=== PATIENT | female | born 1950 | race Caucasian/White ===

== ENCOUNTER 2020-12-16 08:03 | Day surgery (SDC) | payer MEDICARE, BC ==
[2020-12-16] MEDS ORDERED: diphenhydrAMINE 50 MG/ML SDV IVPUSH ONE (08:04)
[2020-12-16] MEDS ORDERED: Dexamethasone 4 MG/ML 5 ML MDV IVPUSH ONE (08:04)
[2020-12-16] MEDS ORDERED: Glycopyrrolate 0.2 MG/ML 5 ML MDV IV ONE (08:04)
[2020-12-16] MEDS ORDERED: HYDROmorphone 2 MG/ML SDV IV ONE (08:04)
[2020-12-16] MEDS ORDERED: Neostigmine Methylsulfate 10 MG/10 ML MDV IVPUSH ONE (08:04)
[2020-12-16] MEDS ORDERED: Ondansetron 4 MG/2 ML SDV IVPUSH ONE ×2 (08:04→13:51)
[2020-12-16] MEDS ORDERED: fentaNYL 100 MCG/2 ML SDV IV ONE (08:04)
[2020-12-16] MEDS ORDERED: Midazolam 1 MG/ML 2 ML SDV IV ONE (08:04)
[2020-12-16] MEDS ORDERED: Rocuronium 50 MG/5 ML Vial IV ONE (08:04)
[2020-12-16] MEDS ORDERED: Propofol 200 MG/20 ML SDV IV ONE (08:04)
[2020-12-16] MEDS ORDERED: Ketorolac 30 MG/ML SDV IVPUSH ONE (08:04)
[2020-12-16] MEDS ORDERED: Lactated Ringers 1,000 ML IV ONE (08:04)
[2020-12-16] MEDS ORDERED: Succinylcholine 200 MG/10 ML MDV IV ONE (08:04)
[2020-12-16] MEDS ORDERED: Lactated Ringers 1,000 ML IV SCH (08:15)
[2020-12-16] MEDS ORDERED: Sodium Chloride 0.9% 10 ML Syringe FLUSH PRN (08:15)
--- NOTE | 2020-12-16 09:57 | PCM.PN ---
- General Info Date of Service: 12/16/20 - Review of Systems Systems Review Comment:: 70 y/o female with symptomatic cholelithiasis here for cholecystectomy. She is medically stable to proceed. I have again reviewed the proposed procedure with the patient. Instructions and expectations reviewed and she agrees to proceed accepting risks. Her recent H and P is reviewed and no significant changes are noted. - Patient Data Weight - Most Recent: 277 lb 3.7 oz Med Orders - Current: Current Medications Lactated Ringer's (Ringers, Lactated) 1,000 mls @ 125 mls/hr IV ASDIRECTED KIRTI Last Admin: 12/16/20 09:05 Dose: 125 mls/hr Documented by: Sodium Chloride (Sodium Chloride 0.9% 10 Ml Syringe) 10 ml FLUSH ASDIRECTED PRN PRN Reason: Keep Vein Open Discontinued Medications Cefazolin Sodium 3 gm/ Sodium (Chloride) 100 mls @ 200 mls/hr IV ONETIME ONE Stop: 12/16/20 08:44 Last Admin: 12/16/20 09:14 Dose: 200 mls/hr Documented by: - Problem List Review Problem List Initiated/Reviewed/Updated: Yes - My Orders Last 24 Hours: My Active Orders 12/15/20 Dinner Nothing Per Oral Diet [DIET] 12/16/20 08:15 Patient Status [ADT] Routine Patient to Empty Bladder [RC] ASDIRECTED RT Incentive Spirometry [RC] ASDIRECTED Lactated Ringers [Ringers, Lactated] 1,000 ml IV ASDIRECTED Sodium Chloride 0.9% [Saline Flush] 10 ml FLUSH ASDIRECTED PRN Peripheral IV Insertion Adult [OM.PC] Routine Sequential Compression Device [OM.PC] Routine 12/16/20 09:30 Verify Patient Consent Obtain [RC] ASDIRECTED - Assessment Assessment:: Symptomatic Cholelithiasis - Plan Plan:: Cholecystectomy
[2020-12-16] MEDS ORDERED: Bupivacaine 0.5% 30 ML SDV INJECT ONE (10:30)
--- NOTE | 2020-12-16 11:46 | PCM.OPNOTE ---
- General Post-Op/Procedure Note Date of Surgery/Procedure: 12/16/20 Operative Procedure(s): Laparoscopic Cholecystectomy Findings: Enlarged gallbladder with stones Pre Op Diagnosis: Symptomatic Cholelithiasis Post-Op Diagnosis: Same Anesthesia Technique: General ET Tube Primary Surgeon: Jaswant Dawn Pathology: Gallbladder with stones Output, Urine Amount: 0 EBL in mLs: 20 Complications: None Condition: Good
[2020-12-16] MEDS ORDERED: Scopolamine 1.5 MG Transdermal Patch TOP ONE (12:48)
[2020-12-16] MEDS ORDERED: hydrOXYzine HCl 50 MG/ML SDV IM ONE (13:07)
--- NOTE | 2020-12-16 13:54 | OR ---
DATE OF OPERATION: 12/16/2020 SURGEON: Jaswant Dawn MD PREOPERATIVE DIAGNOSIS: Symptomatic cholelithiasis. POSTOPERATIVE DIAGNOSIS: Symptomatic cholelithiasis. OPERATION PERFORMED: Laparoscopic cholecystectomy. INDICATIONS FOR SURGERY: This 70-year-old female has been having symptoms of postprandial right upper quadrant and right-sided back pain. She has been found to have cholelithiasis and she comes for cholecystectomy. FINDINGS: The patient's gallbladder is enlarged, distended, and somewhat tense. It does contain multiple stones. The adjacent liver and organs, otherwise, appear unremarkable as viewed laparoscopically. PROCEDURE IN DETAIL: The patient was taken to the operating room. She was given general endotracheal anesthesia. The abdomen was sterilely prepped and draped. An infraumbilical stab wound incision was made. Through this, a Veress needle was inserted and pneumoperitoneum via this needle to a pressure of 15 mmHg was achieved with carbon dioxide. The Veress needle was then replaced with a 12-mm trocar into which the 5-mm variable-angled laparoscopic camera was inserted. Under direct visualization, 5-mm trocars were placed in the subxiphoid midline and in 2 areas of the right abdomen. All trocar sites were infiltrated with Marcaine prior to incision. Intraabdominal and pelvic inspection was carried out and then attention was turned to the gallbladder. There were some fatty adhesions to the undersurface of the right side of the liver. These were carefully taken down with cautery dissection to facilitate exposure of the gallbladder. The gallbladder was then secured with grasping forceps placed through the lateral trocars and retracted superiorly and anteriorly. The fatty tissue overlying the lower portion of the gallbladder was cleared and the cystic duct was identified. The cystic duct was isolated and dissection proceeded into the triangle of Calot clearing this and isolating the cystic artery. Once the cystic artery had been clearly identified, it was doubly clipped and divided. The cystic duct was then clearly identified with the triangle of Calot completely cleared. The cystic duct was milked and it too was doubly clipped and divided near the gallbladder with great care being used to avoid any injury or compromise to the common bile duct. The gallbladder was then dissected free from the undersurface of the liver using the cautery device. Once the gallbladder had been completely freed, it was extracted through the umbilical trocar site. This did require opening the gallbladder extra- abdominally and extracting the stones, but then the gallbladder was able to be removed. Reinspection of the gallbladder bed was performed. Good hemostasis was assured in all areas with cautery and then the pneumoperitoneum was evacuated, and the trocars were removed under direct visualization. The fascia of the umbilical trocar site was closed with a [id number] 0 Vicryl suture. Wounds were irrigated with Betadine and saline solution. Skin incisions approximated with interrupted 4-0 Vicryl in a subcuticular stitch. Antibiotic ointment and sterile dressings were placed. The patient was awakened, extubated, and taken from the operating room in satisfactory condition. ESTIMATED BLOOD LOSS: 20 mL. COMPLICATIONS: None. PROGNOSIS: Good. /[id number] SHERICE/JUNAID
== END 2020-12-16 14:53 | disposition home or self-care (01) ==
LOC: FB.SDS 08:03
PROVIDERS: ATTEND Surgery
DX: K80.12 Calculus of gallbladder with acute and chronic cholecystitis without obstruction (principal); E78.5 Hyperlipidemia, unspecified; I10 Essential (primary) hypertension; K21.9 Gastro-esophageal reflux disease without esophagitis; E66.9 Obesity, unspecified; Z79.899 Other long term (current) drug therapy; Z88.8 Allergy status to other drugs, medicaments and biological substances; Z98.890 Other specified postprocedural states; Z87.891 Personal history of nicotine dependence; Z20.822 Contact with and (suspected) exposure to COVID-19; Z68.42 Body mass index [BMI] 45.0-49.9, adult
CPT/HCPCS: 00790-QZ; 88304; A9270-GY; J0330; J0690; J1100; J1170; J1200; J1885; J2250; J2405; J2704; J2710; J3010; J3410; J3490; J7120